=== PATIENT | female | born 1980 | race Caucasian/White ===

== ENCOUNTER 2021-06-05 20:33 | Emergency (ER) | payer BC ==
[~2021-06-05] VITALS: Ht 165.1 cm; Wt 59.0 kg
[2021-06-05] MEDS ORDERED: BACITRACIN ZINC OINT UDPKT TOP ONE (22:00)
[2021-06-05] MEDS ORDERED: LIDOCAINE HCL/EPINEPHRINE 1%-EPI 1:100,000 20 ML VIAL INFIL ONE (22:00)
[2021-06-05] MEDS ORDERED: TETANUS, DIPHTHERIA, PERTUSSIS VAC/PF 0.5ML (>10YR OLD) IM ONE (22:00)
[2021-06-05] MEDS ORDERED: IBUPROFEN 600MG TABLET PO ONE (22:30)
[2021-06-05 23:05] LABS: BASOPHILS % 0.2 % (0.0-2.0); EOSINOPHILS % 0.2 % (0.0-5.0); HEMATOCRIT. 38.6 % (36.0-48.0); HEMOGLOBIN. 12.9 g/dL (12.0-16.0); LYMPHOCYTES % 42.2 % (20.0-50.0); MEAN CORPUSCULAR HEMOGLOBIN 28.6 pg (28.0-32.0); MEAN CORPUSCULAR VOLUME 85.7 fL (81.0-99.0); MEAN PLATELET VOLUME 7.7 fl (7.4-10.4); MONOCYTES % 4.3 % (2.0-8.0); NEUTROPHILS % 53.1 % (40.0-76.0); PLATELET 303 x1000/uL (130-400); RED CELL DISTRIBUTION WIDTH 14.1 % (11.6-14.6)
[2021-06-05 23:10] LABS: CHLORIDE 102 mEq/L (98-107)
[2021-06-05 23:28] LABS: HCG SCREEN NEGATIVE
[2021-06-05 23:38] VITALS: BP 115/76
[2021-06-06 00:35] LABS: ETHANOL BLOOD 390 mg/dL
== END 2021-06-06 08:45 | disposition home or self-care (01) ==
LOC: ER 20:33
DX: S01.81XA Laceration without foreign body of other part of head, initial encounter (principal); T51.0X1A Toxic effect of ethanol, accidental (unintentional), initial encounter; R55 Syncope and collapse; Y90.8 Blood alcohol level of 240 mg/100 ml or more; W01.0XXA Fall on same level from slipping, tripping and stumbling without subsequent striking against object, initial encounter; Y93.89 Activity, other specified; Y92.520 Airport as the place of occurrence of the external cause
CPT/HCPCS: 12013; 36415; 70450; 80053; 80320; 84703; 85025; 90471; 90715; 93005; 99285; J3490; G0480